=== PATIENT | female | born 1940 | race Two or more races ===

== ENCOUNTER 2019-04-22 22:56 | Inpatient (IN) | payer MEDICARE, BC ==
[~2019-04-22] VITALS: Ht 152.4 cm; Wt 70.6 kg
--- NOTE | 2019-04-22 23:20 | NUR ---
MS KUMAR ADMITTING NOTES: RECEIVED PATIENT FROM [facility]. REPORT WAS GIVEN BY THE RN FROM [facility]. PATIENT IS AWAKE IN BED. VERBALLY RESPONSIVE, ABLE TO MAKE NEEDS KNOWN. EQUATORIAL GUINEAN SPEAKING. A/OX2-3 WITH EPISODES OF CONFUSION. ORIENTED PATIENT TO ROOM AND STAFF. ON ROOM AIR. NO S/S OF SOB NOTED. NO SIGNS OF ACUTE DISTRESS. BREATHING EVEN AND UNLABORED. VITAL SIGNS STABLE AND WITHIN NORMAL LIMITS. PATIENT SRTATES SHE HAS PAIN ON RIGHT HIP DUE TO FALL INCIDENT ESPECIALLY WHEN BEARING WEIGHT ON THE AFFECTED SITE. PATIENT IS BED REST FOR NOW. IV ACCESS ON THE RIGHT FA #[id number], INTACT AND PATENT RUNNING IV NS 0.45% 75MLS/HR. SKIN ASSESSMENT WAS PERFORMED. REDNESS ON THE SACRUM, BACK, AND BILATERAL HEELS NOTED. PICTURES WERE TAKEN UPON ADMISSION. SAFETY MEASURES ARE INITIATED. BED IS IN LOW, LOCKED POSITION WITH SIDE RAILS UP X2. CALL LIGHT IS WITHIN EASY REACH OF THE PATIENT. WILL CONTINUE TO MONITOR PATIENT ACCORDINGLY. Addendum: 04/23/19 at 0236 by BRIONNA SCHWAB RN IV ACCESS IS ON THE LEFT FA #[id number].
[2019-04-22 23:25] VITALS: BP 133/65
--- NOTE | 2019-04-22 23:30 | NUR ---
MS RN NOTES: PATIENT WAS SEEN AND EVALUATED BY DR. PATEL. WAITING FOR ADMISSION ORDERS.
[2019-04-22] MEDS ORDERED: IV 1/2NS 1000 ML 1,000 ML IV PRN (23:40)
[2019-04-23] MEDS ORDERED: MAGNESIUM HYDROXIDE 30 ML UDC PO PRN
[2019-04-23] MEDS ORDERED: HYDROCODONE/APAP 5/325MG 1 EACH TABLET PO PRN
[2019-04-23] MEDS ORDERED: MAG HYDROX/AL HYDROX/SIMETH 30 ML UDC PO PRN
[2019-04-23] MEDS ORDERED: Z GUARD REMEDY 2 OZ OINT TP PRN
[2019-04-23] MEDS ORDERED: ONDANSETRON HCL/PF 4 MG/2 ML VIAL IVP PRN
[2019-04-23] MEDS ORDERED: ZOLPIDEM TARTRATE 5 MG TABLET PO PRN
[2019-04-23] MEDS: ZOLPIDEM TARTRATE 5 MG TABLET PO PRN (01:16)
--- NOTE | 2019-04-23 01:16 | NUR ---
MS RN NOTES: PATIENT REQUESTED FOR SLEEPING PILL TO HELP HER FALL ASLEEP. AMBIEN 5MG PO GIVEN ORDERED. TOLERATED WELL. SAFETY MEASURES KEPT IN PLACE. CALL LIGHT WITHIN REACH. WILL CONTINUE TO MONITOR.
[2019-04-23] MEDS ORDERED: Z GUARD REMEDY 4 OZ OINT TP ONE (05:43)
[2019-04-23 06:29] LABS: BASOPHILS % (AUTO) 0.5 % (0.0-2.0); EOSINOPHILS % (AUTO) 2.8 % (0.0-6.0); HEMATOCRIT 32 % (33-45); HEMOGLOBIN 10.2 g/dL (11.5-14.8); LYMPHOCYTES # (AUTO) 2.6 /CMM (0.8-4.8); LYMPHOCYTES % (AUTO) 35.6 % (20.0-44.0); MEAN CORPUSCULAR HGB CONC 32 g/dl (31.0-36.0); MEAN CORPUSCULAR VOLUME 82 fL (82-100); MONOCYTES # (AUTO) 0.8 /CMM (0.1-1.30); MONOCYTES % (AUTO) 10.3 % (2.0-12.0); NEUTROPHILS # (AUTO) 3.7 /CMM (1.8-8.9); NEUTROPHILS % (AUTO) 50.8 % (43.0-81.0); PLATELET COUNT (AUTO) 252 /CMM (150-450); RED BLOOD CELL COUNT(AUTO) 3.89 MIL/uL (4.0-5.2); WHITE BLOOD COUNT (AUTO) 7.3 K/uL (4.3-11.0)
--- NOTE | 2019-04-23 06:50 | NUR ---
MS RN CLOSING NOTES: PATIENT IS AWAKE IN BED COMPLAINING OF PAIN AT THE RIGHT SIDE OF THE HIP WITH A PAIN LEVEL OF 8-9. NORCO 5-325MG PO TAB WAS GIVEN AT 0629. TOLERATED WELL. PATIENT IS VERBALLY RESPONSIVE AND ABLE TO MAKE NEEDS KNOWN. PATIENT HAS EPISODES OF CONFUSION. ON ROOM AIR. NO S/S OF SOB NOTED. NO SIGNS OF ACUTE DISTRESS. BREATHING EVEN AND UNLABORED. VITAL SIGNS STABLE AND WITHIN NORMAL LIMITS. IV ACCESS ON THE LEFT FA #[id number]. INTACT AND PATENT. SAFETY MEASURES ARE INITIATED. ALL NURSING NEEDS MET AND PROVIDED. KEPT PT DRY AND CLEAN AT ALL TIMES. BED IS IN LOW, LOCKED POSITION WITH SIDE RAILS UP X2. CALL LIGHT IS WITHIN EASY REACH OF THE PATIENT. WILL ENDORSE TO DAY SHIFT FOR JIMBO.
--- NOTE | 2019-04-23 06:59 | NUR ---
MS STACY GUZMAN NOTES: RECEIVED PATIENT FROM [facility]. REPORT WAS GIVEN BY THE RN FROM [facility]. PATIENT IS AWAKE IN BED. VERBALLY RESPONSIVE, ABLE TO MAKE NEEDS KNOWN. BELIZEAN SPEAKING. A/OX2-3 WITH EPISODES OF CONFUSION. ORIENTED PATIENT TO ROOM AND STAFF. ON ROOM AIR. NO S/S OF SOB NOTED. NO SIGNS OF ACUTE DISTRESS. BREATHING EVEN AND UNLABORED. VITAL SIGNS STABLE AND WITHIN NORMAL LIMITS. PATIENT SRTATES SHE HAS PAIN ON RIGHT HIP DUE TO FALL INCIDENT ESPECIALLY WHEN BEARING WEIGHT ON THE AFFECTED SITE. PATIENT IS BED REST FOR NOW. IV ACCESS ON THE RIGHT FA #[id number], INTACT AND PATENT RUNNING IV NS 0.45% 75MLS/HR. SKIN ASSESSMENT WAS PERFORMED. REDNESS ON THE SACRUM, BACK, AND BILATERAL HEELS NOTED. PICTURES WERE TAKEN UPON ADMISSION. SAFETY MEASURES ARE INITIATED. BED IS IN LOW, LOCKED POSITION WITH SIDE RAILS UP X2. CALL LIGHT IS WITHIN EASY REACH OF THE PATIENT. WILL CONTINUE TO MONITOR PATIENT ACCORDINGLY. Addendum: 04/23/19 at 0236 by BRIONNA SCHWAB RN IV ACCESS IS ON THE LEFT FA #[id number]. Addendum: 04/23/19 at 0707 by BRIONNA SCHWAB RN RN CLOSING NOTES: PATIENT IS AWAKE IN BED COMPLAINING OF PAIN AT THE RIGHT SIDE OF THE HIP WITH A PAIN LEVEL OF 8-9. NORCO 5-325MG PO TAB WAS GIVEN AT 0629. TOLERATED WELL. PATIENT IS VERBALLY RESPONSIVE AND ABLE TO MAKE NEEDS KNOWN. PATIENT HAS EPISODES OF CONFUSION. ON ROOM AIR. NO S/S OF SOB NOTED. NO SIGNS OF ACUTE DISTRESS. BREATHING EVEN AND UNLABORED. VITAL SIGNS STABLE AND WITHIN NORMAL LIMITS. IV ACCESS ON THE LEFT FA #[id number]. INTACT AND PATENT. SAFETY MEASURES ARE INITIATED. ALL NURSING NEEDS MET AND PROVIDED. KEPT PT DRY AND CLEAN AT ALL TIMES. BED IS IN LOW, LOCKED POSITION WITH SIDE RAILS UP X2. CALL LIGHT IS WITHIN EASY REACH OF THE PATIENT. WILL ENDORSE TO DAY SHIFT FOR JIMBO.
[2019-04-23 07:00] LABS: THYROID STIMULATING HORMONE 0.763 uIU/mL (0.358-3.74)
[2019-04-23 07:27] LABS: CALCIUM, SERUM 8.8 mg/dL (8.5-10.1); CREATININE 0.7 mg/dL (0.6-1.3); MAGNESIUM 2.2 mg/dL (1.8-2.4); PHOSPHORUS 3.1 mg/dL (2.5-4.9); POTASSIUM 3.6 mmol/L (3.5-5.1)
--- NOTE | 2019-04-23 07:30 | NUR ---
RN MS NOTES PT IN BED, AWAKE, ALERT AND ORIENTED, FORGETFUL, NOT IN DISTRESS, STILL WITH COMPLAINT OF SLIGHT HIP PAIN, KEPT WARM AND COMFORTABLE IN BED.
[2019-04-23 08:00] VITALS: BP 156/67
[2019-04-23] MEDS: OXYBUTYNIN CHLORIDE 5 MG TABLET PO SCH (08:27)
[2019-04-23] MEDS: ACETAMINOPHEN 325 MG TABLET PO PRN (09:15)
[2019-04-23] MEDS: HYDROCODONE/APAP 10/325MG 1 EA TABLET PO PRN ×3 (10:09→23:24)
[2019-04-23] MEDS ORDERED: MELO-107 PO (10:39)
[2019-04-23] MEDS ORDERED: HYDR-3203 PO (10:39)
--- NOTE | 2019-04-23 11:29 | NUR ---
RN MS NOTES PT IN BED, RESTING, PAIN MEDS GIVEN FOR PAIN MANAGEMENT, ALERT WITH PERIODS OF BEING FORGETFUL, SEEN BY DR. GOODWIN, SEEN BY PHYSICAL THERAPIST, CD IMAGING FROM [facility] SENT TO RADIOLOGY FOR READING, CALLED AND LEFT MESSAGES TO PT'S CAREGIVER CHAIM AT [phone] FOR LIST OF CURRENT MEDS, KEPT PT CLEAN AND COMFORTABLE, IV FLUIDS INFUSING WELL.
[2019-04-23 15:51] VITALS: BP 155/66
--- NOTE | 2019-04-23 18:15 | NUR ---
RN MS NOTES PT IN BED, AWAKE, ALERT AND ORIENTED, WITH PERIODS OF BEING FORGETFUL, RESPIRATIONS NORMAL, PAIN MEDICATION GIVEN FOR PAIN MANAGEMENT, CALL LIGHT WITHIN REACH, ASSISTED TO BEDSIDE COMMODE FOR TOILETING NEEDS, LARGE BM X 1 THIS AFTERNOON, BED ALARM ON AT ALL TIMES, KEPT WARM AND COMFORTABLE IN BED.
--- NOTE | 2019-04-23 19:50 | NUR ---
MS RN OPENING NOTES: RECEIVED PATIENT AWAKE IN BED WITH HOB ELEVATED. A/O X2-3 WITH FORGETFULNESS. SPANISH SPEAKING. VERBALLY RESPONSIVE AND ABLE TO MAKE NEEDS KNOWN. ON ROOM AIR, NO SOB NOTED. NO S/S OF ACUTE DISTRESS. VITAL SIGNS STABLE. NO COMPLAINS OF PAIN OR DISCOMFORT AT THIS TIME. NO IV ACCES NOTED. ALL NEEDS ATTENDED AT THIS TIME. SAFETY MEASURE ARE IN PLACE. BED IS IN LOW, LOCKED POSITION WITH SIDE RAILS UP X2. CALL LIGHT IS WITHIN REACH, WILL CONTINUE TO MONITOR PATIENT ACCORDINGLY.
--- NOTE | 2019-04-23 19:55 | NUR ---
MS RN NOTES: PATIENT REFUSED IV LINE REINSERTION AT THIS TIME.
[2019-04-23 20:00] VITALS: BP 148/87
--- NOTE | 2019-04-23 23:24 | NUR ---
MS RN NOTES: PATIENT REPORTS A PAIN LEVEL OF 9 ON A SCALE OF 0-10. NORCO 10MG PO WAS GIVEN ORDERED FOR PAIN MANAGEMENT. TOLERATED WELL. PATIENT IS KEPT WARM AND COMFORTABLE IN BED. WILL CONTINUE TO MONITOR AND ASSESS AFTER 30 MINUTES.
--- NOTE | 2019-04-24 00:15 | NUR ---
RN NOTES DR. ALLEN AND INFORMED HER THAT PT. DOESN'T HAVE AN IV ACCESS RIGHT NOW AND REFUSING TO HAVE ONE
[2019-04-24] MEDS: HYDROCODONE/APAP 10/325MG 1 EA TABLET PO PRN ×2 (05:32→16:33)
--- NOTE | 2019-04-24 05:34 | NUR ---
MS RN NOTES: PATIENT WAS GIVEN NORCO 10 MG PO FOR RIGHT HIP PAIN. TOLERATED WELL. VITAL SIGNS STABLE. WILL CONTINUE TO MONITOR ANS ASSESS PATIENT LATER.
--- NOTE | 2019-04-24 05:34 | NUR ---
MS RN NOTES: PATIENT COMPLAINED OF A PAIN LEVEL OF 8 OUT SCALE OF 0-10.
--- NOTE | 2019-04-24 06:38 | NUR ---
MS RN CLOSING NOTES: PATIENT IS IN BED RESTING. A/O X 2-3 WITH MILD FORGETFULNESS AND EPISODES OF CONFUSION. VERBALLY RESPONSIVE AND ABLE TO MAKE NEEDS KNOWN. ON ROOM AIR, NO SOB NOTED. NO S/S OF ACUTE DISTRESS BREATHING EVEN AND UNLABORED. VITAL SIGNS STABLE AND WITHIN NORMAL LIMITS. NO IV ACCESS NOTED. PATIENT REFUSED TO HAVE IV LINE REINSERTED DURING CLINICAL LABORATORY MANAGER. ALL NURSING NEEDS MET AND PROVIDED. KEPT PATIENT WARM AND COMFORTABLE IN BED THROUGHOUT THE SHIFT. SAFETY MEASURES KEPT IN PLACE. BED IS IN LOW, LOCKED POSITION WITH SIDE RAILS UP X2. CALL LIGHT IS WITHIN EASY REACH OF THE PATIENT. WILL ENDORSE TO DAY SHIFT FOR JIMBO.
--- NOTE | 2019-04-24 07:20 | NUR ---
MS KUMAR OPENING NOTES RECEIVED PT IN BED. AWAKE A/O X3-4. PT ON SUPPLEMENTARY OXYGEN AT 2L VIA NC, WITH NO ACUTE RESPIRATORY DISTRESS NOTED. PT DENIES ANY PAIN OR DISCOMFORT AT THIS TIME. PT ALSO DENIES ANY CONCERNS OR QUESTIONS AT THIS MOMENT. NO PIV ACCESS, AWARE. PT KEPT COMFORTABLE. CALL LIGHT KEPT WITHIN REACH. PT'S BED IN LOWEST, LOCKED POSITION WITH SR X3. WILL CONTINUE PLAN OF CARE. Addendum: 04/24/19 at 0748 by DOREEN GANN RN PT NOT ON SUPPLEMENTARY OXYGEN. PT TOLERATING RA WITH NO ACUTE RESPIRATORY DISTRESS NOTED.
[2019-04-24 08:00] VITALS: BP 133/77
[2019-04-24] MEDS: OXYBUTYNIN CHLORIDE 5 MG TABLET PO SCH (08:42)
[2019-04-24] MEDS: ACETAMINOPHEN 325 MG TABLET PO PRN (08:42)
--- NOTE | 2019-04-24 09:29 | NUR ---
MS RN NOTES PT HAS NO IV ACCESS. RN OFFERED TO PUT IT ON. PT INSISTED TO REFUSE. EXPLAINED RISKS AND BENEFITS, STILL REFUSED. ALSO, AM LABS REFUSED BY PT AT THIS TIME, WILL TRY BY MASTER CONTROL TECHNICIAN AGAIN LATER. WILL CONTINUE TO MONITOR.
[2019-04-24 11:58] LABS: BASOPHILS % (AUTO) 0.3 % (0.0-2.0); EOSINOPHILS % (AUTO) 1.8 % (0.0-6.0); HEMATOCRIT 33 % (33-45); HEMOGLOBIN 10.5 g/dL (11.5-14.8); MEAN CORPUSCULAR HGB CONC 32 g/dl (31.0-36.0); MEAN CORPUSCULAR VOLUME 82 fL (82-100); MONOCYTES # (AUTO) 0.7 /CMM (0.1-1.30); MONOCYTES % (AUTO) 10.6 % (2.0-12.0); NEUTROPHILS # (AUTO) 4.1 /CMM (1.8-8.9); NEUTROPHILS % (AUTO) 58.3 % (43.0-81.0); PLATELET COUNT (AUTO) 278 /CMM (150-450); RED BLOOD CELL COUNT(AUTO) 4.02 MIL/uL (4.0-5.2)
[2019-04-24 12:20] LABS: CALCIUM, SERUM 9.2 mg/dL (8.5-10.1); CREATININE 0.8 mg/dL (0.6-1.3); MAGNESIUM 2.1 mg/dL (1.8-2.4); PHOSPHORUS 3.3 mg/dL (2.5-4.9); POTASSIUM 3.9 mmol/L (3.5-5.1)
[2019-04-24 16:01] VITALS: BP 155/74
[2019-04-24] MEDS: CELECOXIB 100 MG CAPSULE PO SCH ×2 (17:41→21:12)
[2019-04-24] MEDS: METHOCARBAMOL (500MG) 500 MG TABLET PO SCH (17:41)
--- NOTE | 2019-04-24 19:13 | NUR ---
MS RN CLOSING NOTES PT IN BED. AWAKE A/O X3-4. PT TOLERATING RA, WITH NO ACUTE RESPIRATORY DISTRESS NOTED. PT DENIES ANY PAIN OR DISCOMFORT AT THIS TIME. PT ALSO DENIES ANY CONCERNS OR QUESTIONS AT THIS MOMENT. NO PIV ACCESS, MD AWARE. PT KEPT COMFORTABLE. ALL NEEDS AND CARE ATTENDED. CALL LIGHT KEPT WITHIN REACH. PT'S BED IN LOWEST, LOCKED POSITION WITH SR X3. WILL ENDORSE TO INCOMING NIGHT NURSE FOR JIMBO.
--- NOTE | 2019-04-24 19:42 | NUR ---
RECEIVE PT IN BED WATCHING TV A/O X 2 WITH EPISODE OF CONFUSION, STABLE AND NOT IN DISTRESS, SAFETY MEASURES IN PLACE. WILL CONT TO MTR. Addendum: 04/24/19 at 2241 by SHONNA HERBERT RN Pt refused PIV at this time despite explaining risks and benefits MD wood
[2019-04-24 20:00] VITALS: BP 116/63
[2019-04-24] MEDS: ZOLPIDEM TARTRATE 5 MG TABLET PO PRN (21:12)
--- NOTE | 2019-04-24 22:38 | NUR ---
Monitored for pain. no c/o of r hip pain at this time. will cont to mtr
[2019-04-25] MEDS: HYDROCODONE/APAP 5/325MG 1 EACH TABLET PO PRN ×3 (03:50→19:18)
[2019-04-25] MEDS: METHOCARBAMOL (500MG) 500 MG TABLET PO SCH ×2 (04:32→17:38)
--- NOTE | 2019-04-25 06:06 | NUR ---
ASLEEP AND EASILY AWAKEN, NO C/O PAIN AT THIS TIME. STABLE, NEEDS ATTENDED AND ANTICIPATED, KEPT CLEAN, DRY AND COMFORTABLE. MONITORED FOR PAIN AND ATTENDED. AM CARE RENDERED, ASSISTED REPOSITION EVERY 2 HOURS. GOOD SKIN CARE, SAFETY MEASURE AT ALL TIME. WILL ENDORSE POC. Addendum: 04/25/19 at 0619 by SHONNA HERBERT RN ENCOURAGE PT TO INCREASE FLUID PO INTAKE. PT REFUSED PIV ACCESS DESPITE EXPLAINING RISKS AND BENEFITS
[2019-04-25] MEDS: HYDROCODONE/APAP 10/325MG 1 EA TABLET PO PRN ×2 (07:26→15:53)
--- NOTE | 2019-04-25 07:31 | NUR ---
patient reported left hip pain 10/10. PRN pain medication administrated
[2019-04-25 08:00] VITALS: BP 150/70
[2019-04-25] MEDS: CELECOXIB 100 MG CAPSULE PO SCH (08:35)
[2019-04-25] MEDS: OXYBUTYNIN CHLORIDE 5 MG TABLET PO SCH (08:35)
[2019-04-25] MEDS ORDERED: HYDR-3972 PO (11:38)
[2019-04-25] MEDS ORDERED: ACET325T53 PO (11:38)
[2019-04-25] MEDS ORDERED: Hydrocodone/Apap 10/325MG PO (11:38)
[2019-04-25] MEDS ORDERED: MAGN400O6 PO (11:38)
[2019-04-25] MEDS ORDERED: OXYB5TAB16 PO (11:38)
[2019-04-25] MEDS ORDERED: CELE100C PO (11:38)
[2019-04-25] MEDS ORDERED: MAG30ORA PO (11:38)
[2019-04-25] MEDS ORDERED: ALLA266C2 TP (11:38)
[2019-04-25] MEDS ORDERED: METH500T6 PO (11:38)
--- NOTE | 2019-04-25 14:47 | NUR ---
report called to Mara KUMAR ([facility] )
[2019-04-25 16:00] VITALS: BP 150/66
--- NOTE | 2019-04-25 18:32 | NUR ---
PATIENT RESTING IN BED, AND HAS NO PAIN AT THIS TIME. PATIENT CLEARED FOR D/C BY MD AND WILL BE TRANSFERRED TO SNF. PHOTOGRAPHER FINISH TIME NOT AVAILABLE. ALL DISCHARGE INSTRUCTIONS PROVIDED TO PATIENT. D/C PICTURES TAKEN AND PLACED IN THE CHART. PATIENTS HOME MEDS PICKED UP FROM PHARMACY. VALUABLE FORM REVIEWED WITH THE PATIENT AND ALL BELONGINGS WITH THE PATIENT. ALL NEEDS ATTENDED.PATIENT HAS NO IV ASSESS. PAIN MEDICATION ADMINISTRATED NEEDED. WILL ENDORSE TO NEXT SHIFT FOR JIMBO.
--- NOTE | 2019-04-25 19:19 | NUR ---
patient picked up by ambulance. Pain medication administrated . ID wrist removed, no IV line ,. Patient sighed d/c papers including valuable form
== END 2019-04-25 19:30 | DRG 552 ==
LOC: MED 22:56
PROVIDERS: ADMIT Student in an Organized Health Care Education/Training Program; ATTEND Registered Nurse
DX: M62.830 Muscle spasm of back (principal); M25.551 Pain in right hip; D64.9 Anemia, unspecified; E86.0 Dehydration; W19.XXXA Unspecified fall, initial encounter; E03.9 Hypothyroidism, unspecified; F32.9 Major depressive disorder, single episode, unspecified; G89.29 Other chronic pain; Z86.12 Personal history of poliomyelitis; Z87.891 Personal history of nicotine dependence; F41.9 Anxiety disorder, unspecified; R32 Unspecified urinary incontinence; Y93.9 Activity, unspecified; Y92.009 Unspecified place in unspecified non-institutional (private) residence as the place of occurrence of the external cause
CPT/HCPCS: 36415; 80048-TC; 80061-TC; 83735-TC; 84100-TC; 84443-TC; 85025-TC; 87081-TC; 93307-TC; 97112-TC; 97116-TC; 97530-TC; G0378; J3490

== ENCOUNTER 2019-10-17 02:50 | Inpatient (IN) | payer MEDICARE, BC ==
[~2019-10-17] VITALS: Ht 152.4 cm; Wt 59.4 kg
[~2019-10-17 02:50] MED LIST: ACET325T53 PO; ALLA266C2 TP; CELE100C PO; HYDR-3972 PO; Hydrocodone/Apap 10/325MG PO; MAG30ORA PO; MAGN400O6 PO; METH500T6 PO; OXYB5TAB16 PO
--- NOTE | 2019-10-17 03:01 | NUR ---
BLOOD COLLECTED AND SENT TO LAB.
--- NOTE | 2019-10-17 03:01 | NUR ---
PATIENT CAME FROM [facility] RA C/O OXYGEN SATURATION AT 86% ON ROOM AIR. PATIENT PLACED ON 6L OF N/C AND IS ON 94% O2. AAOX4. BREATHING EVENLY AND UNLABORED ON ROOM AIR. CONNECTED TO MONITOR.
--- NOTE | 2019-10-17 03:09 | NUR ---
XRAY AT BEDSIDE.
--- NOTE | 2019-10-17 03:18 | NUR ---
COVID-19 SAMEPL AND URINE COLLECTED AND SENT TO LAB.
[2019-10-17 03:30] LABS: BASOPHILS # (AUTO) 0.1 /CMM (0.0-0.2); BASOPHILS % (AUTO) 0.7 % (0.0-2.0); EOSINOPHILS % (AUTO) 0.4 % (0.0-6.0); HEMATOCRIT 41 % (33-45); HEMOGLOBIN 13.5 g/dL (11.5-14.8); LYMPHOCYTES # (AUTO) 1.1 /CMM (0.8-4.8); LYMPHOCYTES % (AUTO) 8.9 % (20.0-44.0); MEAN CORPUSCULAR HGB CONC 33 g/dl (31.0-36.0); MEAN CORPUSCULAR VOLUME 94 fL (82-100); MONOCYTES # (AUTO) 0.6 /CMM (0.1-1.30); MONOCYTES % (AUTO) 4.9 % (2.0-12.0); NEUTROPHILS # (AUTO) 10.9 /CMM (1.8-8.9); NEUTROPHILS % (AUTO) 85.1 % (43.0-81.0); PLATELET COUNT (AUTO) 313 /CMM (150-450); RED BLOOD CELL COUNT(AUTO) 4.37 MIL/uL (4.0-5.2); WHITE BLOOD COUNT (AUTO) 12.7 K/uL (4.3-11.0)
[2019-10-17 03:35] LABS: APPEARANCE,URINE Slightly Cloudy (CLEAR); BILIRUBIN,URINE Negative (NEGATIVE); BLOOD, URINE Moderate Ery/uL (NEGATIVE); COLOR,URINE Yellow (YELLOW); KETONES,URINE 15 (NEGATIVE); LEUKOCYTE ESTERASE ,URINE Small (NEGATIVE); NITRITE, URINE Negative (NEGATIVE); PROTEIN,URINE Negative (NEGATIVE); UGLUCOSE Negative (NEGATIVE); UROBILINOGEN,URINE 0.2 EU/dL (0.2)
[2019-10-17 03:44] LABS: BACTERIA,URINE Many /HPF (None Seen); SQUAMOUS EPITHELIAL CELL,UR Few /HPF (None Seen)
[2019-10-17 03:45] LABS: CALCIUM, SERUM 9.4 mg/dL (8.5-10.1); CARBON DIOXIDE 26 mmol/L (21-32); CHLORIDE 102 mmol/L (98-107); GLUCOSE 139 mg/dL (74-106); SODIUM SERUM 140 mmol/L (136-145); UREA NITROGEN, BLOOD 19 mg/dL (7-18)
[2019-10-17 03:49] LABS: ALANINE AMINOTRANSFERASE 18 U/L (12-78); ALBUMIN 3.3 g/dL (3.4-5.0); ALKALINE PHOSPHATASE 159 U/L (46-116); ASPARTATE AMINOTRANSFERASE 23 U/L (15-37); B-TYPE NATRIURETIC PEPTIDE 338 PG/ML (0-125); BILIRUBIN,TOTAL 0.7 mg/dL (0.2-1.0); TOTAL PROTEIN, SERUM 8.4 g/dL (6.4-8.2)
[2019-10-17] MEDS ORDERED: ONDANSETRON HCL/PF 4 MG/2 ML VIAL IVP PRN (04:30)
[2019-10-17] MEDS ORDERED: ALBUTEROL SULFATE 8 GM HFA.AER.AD IH PRN (04:30)
[2019-10-17 04:33] LABS: CREATINE KINASE, TOTAL 137 U/L (26-192); FERRITIN 48 ng/mL (8-388)
[2019-10-17 04:40] LABS: C-REACTIVE PROTEIN 4.5 mg/dL (0.0-0.9)
--- NOTE | 2019-10-17 04:44 | NUR ---
PATIENT WILL GO TO BED 103
--- NOTE | 2019-10-17 04:44 | NUR ---
BED ASSIGNMENT 103
--- NOTE | 2019-10-17 05:01 | NUR ---
REPORT GIVEN TO HERNAN KUMAR FOR JIMBO.
[2019-10-17] MEDS ORDERED: HYDR-4384 PO (05:08)
[2019-10-17] MEDS ORDERED: MAGN400O6 GT (05:08)
[2019-10-17] MEDS ORDERED: NITR0.4T48 SL (05:09)
[2019-10-17] MEDS ORDERED: METH-406 PO (05:10)
[2019-10-17] MEDS ORDERED: CELE100C PO (05:10)
--- NOTE | 2019-10-17 05:10 | NUR ---
RN NOTES: REPORT GIVEN BY ZEN/ER/RN, PATIENT WAS BROUGHT IN ER VIA AMBULANCE, SHE HAD PRODUCTIVE COUGH 3-4 DAYS AGO WITH GREENISH SPUTUM, SHE IS COMPLAINING OF CHEST PAIN, SHE WAS ON THE SAME FLOOR IN THEIR FACILITY WITH A COVID 19 POSITIVE PATIENT, SHE CAME IN WITH DESATURATION SPO2-86%, SHE WAS PLACED IN FM AT 10L/MIN AFTER THAT SLOWLY SHE IMPROVE AND REACH 91%, SHE HAS HISTORY OF FALL AND VERY HIGH RISK FOR FALL, COVID SWAB AND MRSA SWAB DONE INER, MED RECON NOT YET DONE, NO MEDICATION GIVEN IN ER.
[2019-10-17] MEDS ORDERED: OXYB5TAB16 PO (05:11)
[2019-10-17] MEDS ORDERED: SERT25TA PO (05:13)
[2019-10-17 05:25] VITALS: BP 142/82
--- NOTE | 2019-10-17 05:25 | NUR ---
RN NOTES: ADMITTED FROM ER AT O525 ACCOMPANIED BY 2 RN, SHE IS ON HACK SAW OPERATOR FROM ER,TELE MONITORING INITIATED SINUS TACHYCARDIA-109, PLACED ON DROPLET ISOLATION DX:PNEUMONIA/SEPSIS TO R/O COVID, A/OX1, LOOKS CONFUSED AND ANXIOUS, UNABLE TO ANSWER AND GIVE INFORMATION WELL SHE LOOKS SICK, PALE AND TIRED, ORIENTED TO UNIT AND STAFF, FALL,SAFETY AND ASPIRATION PRECAUTION OBSERVED.ON O2 AT 6L/MIN VIA FACIAL MASK, UPON INTERVIEW SHE CANNOT RECALL HER PNA AND FLU VACCINE, UPON SKIN ASSESSMENT NO SKIN ISSUES WAS FOUND HER SKIN IS CLEAR AND INTACT, NO EDEMA, SHE VERBALIZED SHE IS AMBULATING WHEN SHE IS NOT SICK,FALL,SAFETY AND ASPIRATION PRECAUTION, NOTED WITH ON AND OFF PRODUCTIVE COUGH, SHE COUGH OUT WHITE STICKY PHLEGM, SHE VOMITED ONCE UNDIGESTED FOOD, SHE IS TRYING TO REMOVE HER FACIAL MASK,EDUCATE AND INSTRUCTED NOT TO REMOVE IT, NOTED WITH WHEEZING AND RALES. SPO2 AT 90-91%.
[2019-10-17 05:35] LABS: BAND % (MANUAL) 3 % (0.0-5.0); LYMPHOCYTES % (MANUAL) 7 % (16-48); MONOCYTES % (MANUAL) 5 % (0-11.0); NEUTROPHILS % (MANUAL) 85 (42-76)
[2019-10-17] MEDS: IV NS 0.9% 1,000 ML IV PRN (05:52)
[2019-10-17] MEDS: DOXYCYCLINE HYCLATE (100 MG) 100 MG TABLET PO SCH ×3 (05:52→16:29)
[2019-10-17] MEDS: ACETAMINOPHEN 325 MG TABLET PO PRN (05:52)
--- NOTE | 2019-10-17 06:24 | NUR ---
RN NOTES: VOMITED ONCE UNDIGESTED FOOD WITH PHLEGM, SHE HAS ON AND OFF COUGH, WHEEZING AND RALES NOTED.
--- NOTE | 2019-10-17 07:27 | NUR ---
RN NOTES: KEPT ON SEMI FOWLERS POSITION, SPO2 90% ON O2 AT 6L/MIN VIA FACIAL MASK,IVF ONGOING NS AT 75ML/HR , IV CANNULA LFA G#20,, PUT ON DIAPER, AND SHE REQUEST TO HAVE BED KHAN, ENDORSED FOR CONTINUITY OF CARE.
[2019-10-17 08:00] VITALS: BP 145/65
[2019-10-17] MEDS ORDERED: SENN-261 PO (08:39)
[2019-10-17] MEDS ORDERED: BISA10SU11 RC (08:39)
[2019-10-17] MEDS ORDERED: ACET-2605 PO (08:39)
[2019-10-17] MEDS ORDERED: NA P133E RC (08:39)
[2019-10-17] MEDS ORDERED: METH500T6 PO (08:39)
[2019-10-17] MEDS ORDERED: GABA-534 PO (08:39)
[2019-10-17] MEDS ORDERED: ACET-868 PO (08:39)
[2019-10-17] MEDS ORDERED: FERR325T24 PO (08:39)
[2019-10-17] MEDS ORDERED: DULO20CA PO (08:39)
[2019-10-17] MEDS ORDERED: MAG30ORA PO (08:39)
[2019-10-17] MEDS ORDERED: LIDO30AD10 TP (08:39)
[2019-10-17] MEDS ORDERED: LEVOFLOXACIN 500 MG /D5W 100ML 500 MG/100 ML PIGGYBACK IV SCH (09:00)
[2019-10-17] MEDS: LEVOFLOXACIN 500 MG /D5W 100ML 500 MG in PREMIX 1 EA IV SCH (10:07)
[2019-10-17] MEDS ORDERED: BISACODYL SUPP (10 MG) 10 MG/SUPP.RECT SUPP.RECT RC PRN (11:00)
[2019-10-17] MEDS ORDERED: Z GUARD REMEDY 2 OZ OINT TP PRN (11:00)
[2019-10-17] MEDS ORDERED: NITROGLYCERIN 0.4 MG/TAB BOTTLE SL PRN (11:00)
[2019-10-17 11:02] LABS: ABG PCO2 35.8 mmHg (35.0-45.0); ABG PH 7.409 (7.350-7.450); ABG PO2 74.9 mmHg (75.0-100.0); AaDO2 241.3 mmHg; COHb 0.7 % (0.5-1.5); MetHb 0.3 % (0.0-1.5); SITE, ABG Right Radial; VENT MODE, BG SM 6L
[2019-10-17] MEDS: SERTRALINE HCL 25 MG TABLET PO SCH (11:35)
[2019-10-17] MEDS: METHOCARBAMOL (500MG) 500 MG TABLET PO SCH ×2 (11:35→21:21)
[2019-10-17] MEDS: ENOXAPARIN SODIUM 40 MG/0.4 ML DISP.SYRIN SQ SCH (11:38)
[2019-10-17] MEDS: LIDOCAINE 5% (PATCH) 1 EA PATCH TP SCH (11:40)
[2019-10-17] MEDS: OXYBUTYNIN CHLORIDE 5 MG TABLET PO SCH (11:40)
[2019-10-17 12:00] VITALS: BP 133/76
[2019-10-17 20:00] VITALS: BP 152/72
[2019-10-17] MEDS: SENNOSIDES 8.6 MG TABLET PO SCH (21:21)
[2019-10-18] VITALS: BP 144/78
[2019-10-18 04:00] VITALS: BP 128/63
--- NOTE | 2019-10-18 06:39 | NUR ---
rn notes alert, verbally able to communicate needs. confused. vomitted x2, administered zofran 4mg iv, effective. vital signs wnl. remains afebrile. on 6lpm 02 via mask tolerating well, breathing even and unlabored.
[2019-10-18 07:18] LABS: BASOPHILS % (AUTO) 0.4 % (0.0-2.0); EOSINOPHILS % (AUTO) 1.4 % (0.0-6.0); HEMATOCRIT 38 % (33-45); HEMOGLOBIN 12.5 g/dL (11.5-14.8); LYMPHOCYTES # (AUTO) 1.7 /CMM (0.8-4.8); LYMPHOCYTES % (AUTO) 15.4 % (20.0-44.0); MEAN CORPUSCULAR HGB CONC 33 g/dl (31.0-36.0); MEAN CORPUSCULAR VOLUME 95 fL (82-100); MONOCYTES # (AUTO) 0.8 /CMM (0.1-1.30); MONOCYTES % (AUTO) 7.2 % (2.0-12.0); NEUTROPHILS # (AUTO) 8.5 /CMM (1.8-8.9); NEUTROPHILS % (AUTO) 75.6 % (43.0-81.0); PLATELET COUNT (AUTO) 268 /CMM (150-450); RED BLOOD CELL COUNT(AUTO) 4.03 MIL/uL (4.0-5.2); WHITE BLOOD COUNT (AUTO) 11.2 K/uL (4.3-11.0)
[2019-10-18 07:35] LABS: BILIRUBIN,TOTAL 0.8 mg/dL (0.2-1.0); CALCIUM, SERUM 9.2 mg/dL (8.5-10.1); CREATININE 0.7 mg/dL (0.6-1.3); POTASSIUM 3.7 mmol/L (3.5-5.1); TOTAL PROTEIN, SERUM 7.8 g/dL (6.4-8.2)
[2019-10-18 08:00] VITALS: BP 116/51
[2019-10-18] MEDS: LIDOCAINE 5% (PATCH) 1 EA PATCH TP SCH (08:51)
[2019-10-18] MEDS: OXYBUTYNIN CHLORIDE 5 MG TABLET PO SCH (08:51)
[2019-10-18] MEDS: SERTRALINE HCL 25 MG TABLET PO SCH (08:51)
[2019-10-18] MEDS: METHOCARBAMOL (500MG) 500 MG TABLET PO SCH ×2 (08:51→21:18)
[2019-10-18] MEDS: DOXYCYCLINE HYCLATE (100 MG) 100 MG TABLET PO SCH ×2 (08:51→16:02)
[2019-10-18] MEDS: ENOXAPARIN SODIUM 40 MG/0.4 ML DISP.SYRIN SQ SCH (08:53)
[2019-10-18] MEDS ORDERED: POTASSIUM CHLORIDE 20 MEQ TAB.PRT.SR PO SCH (11:00)
[2019-10-18 12:00] VITALS: BP 124/70
[2019-10-18 16:00] VITALS: BP 130/68
[2019-10-18 20:00] VITALS: BP 129/77
[2019-10-18] MEDS: IV NS 0.9% 1,000 ML IV PRN (20:42)
[2019-10-18] MEDS: SENNOSIDES 8.6 MG TABLET PO SCH (21:18)
[2019-10-19] VITALS: BP 142/72
[2019-10-19 04:00] VITALS: BP 126/59
[2019-10-19 06:25] LABS: BASOPHILS # (AUTO) 0.1 /CMM (0.0-0.2); BASOPHILS % (AUTO) 0.6 % (0.0-2.0); EOSINOPHILS % (AUTO) 2.9 % (0.0-6.0); HEMATOCRIT 37 % (33-45); HEMOGLOBIN 12.2 g/dL (11.5-14.8); LYMPHOCYTES # (AUTO) 1.7 /CMM (0.8-4.8); LYMPHOCYTES % (AUTO) 17.5 % (20.0-44.0); MEAN CORPUSCULAR HGB CONC 33 g/dl (31.0-36.0); MEAN CORPUSCULAR VOLUME 94 fL (82-100); MONOCYTES # (AUTO) 0.9 /CMM (0.1-1.30); MONOCYTES % (AUTO) 9.5 % (2.0-12.0); NEUTROPHILS # (AUTO) 6.7 /CMM (1.8-8.9); NEUTROPHILS % (AUTO) 69.5 % (43.0-81.0); PLATELET COUNT (AUTO) 230 /CMM (150-450); RED BLOOD CELL COUNT(AUTO) 3.91 MIL/uL (4.0-5.2); WHITE BLOOD COUNT (AUTO) 9.7 K/uL (4.3-11.0)
[2019-10-19 06:27] LABS: CALCIUM, SERUM 8.9 mg/dL (8.5-10.1); CREATININE 0.7 mg/dL (0.6-1.3); PHOSPHORUS 2.7 mg/dL (2.5-4.9); POTASSIUM 3.7 mmol/L (3.5-5.1)
[2019-10-19 08:00] VITALS: BP 124/50
--- NOTE | 2019-10-19 08:00 | NUR ---
TANK WELDER OPENING NOTES: RECEIVED PT ALERT BUT CONFUSED IN BED RESTING COMFORTABLY. PATIENT IN NO S/SX OF ACUTE DISTRESS AT THIS TIME. NO SOB NOTED. PATIENT'S BREATHING IS EVEN AND UNLABORED. PATIENT IS ON 2L OF OXYGEN VIA NC, TOLERATING WELL. PATIENT ON CARDIAC MONITORING READING SINUS RHYTHM HR IS @61. NOTED IV SITE ON LEFT FA 20 G ; PATENT IN INTACT. SAFETY MEASURES HAVE BEEN PROVIDED AND IMPLEMENTED. PATIENT BED ALARM IS ON. HEAD OF BED ELEVATED. BED IS LOCKED, IN LOWEST POSITION AND SIDE RAILS UP. CALL LIGHT WITHIN REACH OF THE PATIENT. WILL CONTINUE TO MONITOR AND REASSESS FOR ANY CHANGES.
[2019-10-19] MEDS: LIDOCAINE 5% (PATCH) 1 EA PATCH TP SCH (08:42)
[2019-10-19] MEDS: SERTRALINE HCL 25 MG TABLET PO SCH (08:42)
[2019-10-19] MEDS: OXYBUTYNIN CHLORIDE 5 MG TABLET PO SCH (08:42)
[2019-10-19] MEDS: METHOCARBAMOL (500MG) 500 MG TABLET PO SCH ×2 (08:43→21:26)
[2019-10-19] MEDS: ENOXAPARIN SODIUM 40 MG/0.4 ML DISP.SYRIN SQ SCH (08:44)
[2019-10-19] MEDS: LEVOFLOXACIN 500 MG /D5W 100ML 500 MG in PREMIX 1 EA IV SCH (08:46)
[2019-10-19 12:00] VITALS: BP_SYST 123; BP_SYST 93; BP_DIAS 59; BP_DIAS 60
[2019-10-19 16:00] VITALS: BP 132/59
--- NOTE | 2019-10-19 17:56 | NUR ---
TELE/RN NOTES PATIENT FOUND BY THE AIR TESTER IS ON THE FLOOR. NO BRUISE NO SKIN REDNESS NOTED PATIENT DENIES PAIN AT THIS TIME. MD IS AWARE AND CHARGE NURSE. WILL MONITOR CONTINUOUSLY.
--- NOTE | 2019-10-19 18:00 | NUR ---
RIB SAWYER NOTES PATIENT PULLED OUT IV LINE. IV ACCESS WAS INITIATED BUT PATIENT KEPT ON PULL OUT THE IV ACCESS. TRIED TO EXPLAIN THE RISK AND BENEFITS. CHARGE NURSE IS AWARE.
--- NOTE | 2019-10-19 18:45 | NUR ---
PATIENT IN BED RESTING COMFORTABLY. PATIENT IN NO ACUTE DISTRESS. NO SOB NOTED, PT BREATHING IS EVEN AND UNLABORED. PT BREATHING ON OXYGEN 2L VIA NC SATURATING > 95% SP02. PATIENT ON CARDIAC MONITORING READING SINUS RHYTHM HR IS @61. PATIENT STATES NO PAIN AT THIS TIME. PATIENT IS CLEAN , DRY AND COMFORTABLE THROUGHOUT THE SHIFT. NEEDS AND CONCERNS ADDRESSED. SAFETY MEASURES IN PLACED. PATIENT BED IS LOCKED AND IN LOWEST POSITION. SIDE RAILS UP. CALL LIGHT WITHIN REACH OF THE PATIENT. WILL ENDORSE TO PM SHIFT FOR JIMBO.
--- NOTE | 2019-10-19 19:29 | NUR ---
RN OPENING NOTES RECEIVED PATIENT FROM AM NURSE, IN BED, CONFUSED, CURRENTLY ON ROOM AIR SATURATING WELL, NO SIGNS AND SYMPTOMS OF RESPIRATORY DISTRESS. PATIENT IS SINUS TACHY ON THE MONITOR, MD IS AWARE. PATIENT HAS PULLED OUT HER IV EARLIER TODAY, WRAPPED NEW IV SITE TO PREVENT AGITATION. WILL CONTINUE TO MONITOR CLOSELY. SAFETY MAINTAINED, CALL LIGHT WITHIN REACH.
[2019-10-19 20:00] VITALS: BP 122/95
--- NOTE | 2019-10-19 20:00 | NUR ---
RN NOTE PATIENT IS ATTEMPTING TO GET OUT OF BED. HAD A FALL EARLIER TODAY, PULLED OUT HER IV. PATIENT IS CONFUSED, SPOKE TO DR AVINA. MD ORDERED BILATERAL WRIST RESTRAINTS. PLACED PATIENT ON RESTRAINTS PER MD ORDER. SAFETY IS MAINTAINED, CONTINUOUSLY ASSESSING THE WRIST RESTRAINTS AND ATTENDING ALL PATIENT NEEDS. PATIENT IV IS DISLODGED, UNABLE TO START A NEW IV AT THE MOMENT, PATIENT IS A HARD STICK. NOTIFIED CHARGE NURSE, WILL ATTEMPT TO START AN IV SOON POSSIBLE. PATIENT SAFETY IS BEING MAINTAINED, CALL LIGHT WITHIN REACH, WILL CONTINUE TO MONITOR.
[2019-10-19] MEDS: SENNOSIDES 8.6 MG TABLET PO SCH (21:26)
--- NOTE | 2019-10-19 23:50 | NUR ---
RN NOTE NO NURSE ON THE FLOOR IS ABLE TO START AN IV ON THIS PATIENT. NOTIFIED JASON HOYT TO KEEP PATIENT WITHOUT AN IV ACCESS THROUGHOUT THE NIGHT. SAFETY MAINTAINED, CALL LIGHT WITHIN REACH, WILL CONTINUE TO MONITOR.
[2019-10-20] VITALS: BP 129/72
--- NOTE | 2019-10-20 02:41 | NUR ---
RN NOTE MIDLINE ORDERED BECAUSE NO PERIPHERAL IV AVAILABLE. APPROVED BY NURSING WEB SITE DEVELOPER ALEN Jarvis AND ORDERED BY KAILYN TEJEDA. MIDLINE IS BEING INSERTED AT THE MOMENT. SAFETY MAINTAINED, CALL LIGHT WITHIN REACH, WILL CONTINUE TO MONITOR.
[2019-10-20] MEDS: IV NS 0.9% 1,000 ML IV PRN ×2 (03:06→23:00)
[2019-10-20 04:00] VITALS: BP 117/98
--- NOTE | 2019-10-20 06:24 | NUR ---
RN CLOSING NOTES PATIENT REMAINED IN STABLE CONDITION THROUGHOUT MY SHIFT. NO ACUTE CHANGES TO PATIENT CONDITION HAS BEEN NOTED. NO RESPIRATORY DISTRESS AT THIS MOMENT. ALL PATIENT NEEDS ATTENDED TO, SCHEDULED MEDS GIVEN ON TIME. PATIENT SAFETY WAS MAINTAINED, CALL LIGHT WITHIN REACH, WILL ENDORSE TO AM NURSE FOR CONTINUITY OF CARE.
[2019-10-20 08:00] VITALS: BP 124/72
--- NOTE | 2019-10-20 08:00 | NUR ---
RN NOTES RECEIVED PATIENT IN HE BED A/O X2/3 FORGETFUL, ON ROOM AIR, NO ACUTE RESPIRATORY DISTRESS, V/S STABLE, INFUSING NS AT 75 ML/HR ON LEFT HAND INTACT, PATIENT REFUSED PAIN, ADMINISTERED SCHEDULED MEDICATION CRUSHED. PATIENT GETTING OUT OF BED, EDUCATED PATIENT TO USE CALL LIGHT FOR FALL PRECAUTION, PATIENT TURN AND REPOSTION SELF IN THE BED, SAFETY PRECAUTION MAINTAINED ALL THE TIME.
--- NOTE | 2019-10-20 08:00 | NUR ---
RN NOTES RECEIVED PATIENT IN THE BED SLEEPING, AROUSE WHEN CALLED NAME OR TOUCHED, V/S STABLE,INFUSING NS AT 75 ML/HR INTACT RIGHT UPPER MIDLINE INTACT. PATIENT TURN AND REPOSTION IN THE BED, ON RESTRAIN, CHECKED CIRCULATION, CALL LIGHT WITHIN TO REACH. CONTINUED MONITORING.
--- NOTE | 2019-10-20 09:00 | NUR ---
RN NOTES ADMINISTERED SCHEDULED MEDICATION, PATIENT FRISIAN SPEAKER, WAS COMPLAINING OF PAIN LOWER BACK, APPLIED LIDOCAINE PATCH, BED ALARM ON.
[2019-10-20] MEDS: LIDOCAINE 5% (PATCH) 1 EA PATCH TP SCH (10:03)
[2019-10-20] MEDS: METHOCARBAMOL (500MG) 500 MG TABLET PO SCH ×2 (10:04→20:28)
[2019-10-20] MEDS: SERTRALINE HCL 25 MG TABLET PO SCH (10:04)
[2019-10-20] MEDS: OXYBUTYNIN CHLORIDE 5 MG TABLET PO SCH (10:04)
[2019-10-20] MEDS: ENOXAPARIN SODIUM 40 MG/0.4 ML DISP.SYRIN SQ SCH (10:07)
--- NOTE | 2019-10-20 10:41 | NUR ---
RN NOTES PATIENT REMOVED IV ACCESS, PATIENT STATE "I AM THINKING I AM ". ADMINISTERED SCHEDULED MEDICATION., PATIENT INCONTINENT OF BLADDER, AND BOWEL, APPLIED DIAPER, SKIN INTACT CALL LIGHT WITHIN TO REACH, CONTINUED MONITORING.
[2019-10-20 12:00] VITALS: BP 130/76
--- NOTE | 2019-10-20 13:01 | NUR ---
RN NOTES BECAUSE OF PATIENT REMOVED IV ACCESS, TRIED AND UNABLE TO INSERT NEW ONE, PATIENT WAS YELLING. CALLED OCCUPATIONAL MEDICINE PHYSICIAN FOR NEW MIDLINE INSERTION.
--- NOTE | 2019-10-20 14:46 | NUR ---
RN NOTES PATIENT POSITIVE FOR COVID -19 TEST RESULT.
[2019-10-20 16:00] VITALS: BP 140/69
--- NOTE | 2019-10-20 18:06 | NUR ---
RN NOTES PATIENT STABLE EATING DINNER, NO ACUTE RESPIRATORY DISTRESS. INFUSING NS AT 75 ML/HR ON RIGHT MIDDLING IN UPPER ARM INTACT, ASSIST TURN AND REPOSTION Q 2 HR, SAFETY PRECAUTION MAINTAINED ALL THE TIME. ENDORSED ONCOMING NURSE FOLLOW PLAN OF CARE.
--- NOTE | 2019-10-20 19:05 | NUR ---
OPERATIONAL COMMUNICATION CHIEF OPENING NOTES: RECEIVED PT AWAKE BUT CONFUSED IN BED RESTING COMFORTABLY. PATIENT IN NO S/SX OF ACUTE DISTRESS AT THIS TIME. NO SOB NOTED. PATIENT'S BREATHING IS EVEN AND UNLABORED. PATIENT IS ON 2L OF OXYGEN VIA NC, TOLERATING WELL. PATIENT ON CARDIAC MONITORING READING SINUS RHYTHM HR IS @71. NOTED IV SITE ON BEV MIDLINE WITH IVF NS RUNNING @ 75ML/HR INFUSING WELLON DROPLET ISOLATION TO R/O COVID 19, WITH HAND MITTEN ORDER CURRENTLY OFF PT IS COOPERATIVE LARISA SAFETY MEASURES HAVE BEEN PROVIDED AND IMPLEMENTED. PATIENT BED ALARM IS ON. HEAD OF BED ELEVATED. BED IS LOCKED, IN LOWEST POSITION AND SIDE RAILS UP. CALL LIGHT WITHIN REACH OF THE PATIENT. WILL CONTINUE TO MONITOR AND REASSESS FOR ANY CHANGES.
[2019-10-20 20:00] VITALS: BP 137/69
[2019-10-20] MEDS: SENNOSIDES 8.6 MG TABLET PO SCH (21:23)
[2019-10-21] VITALS: BP 150/54
[2019-10-21 04:00] VITALS: BP 156/74
[2019-10-21 06:23] LABS: BASOPHILS % (AUTO) 0.6 % (0.0-2.0); EOSINOPHILS % (AUTO) 1.7 % (0.0-6.0); HEMATOCRIT 35 % (33-45); HEMOGLOBIN 11.7 g/dL (11.5-14.8); LYMPHOCYTES # (AUTO) 1.8 /CMM (0.8-4.8); LYMPHOCYTES % (AUTO) 23.1 % (20.0-44.0); MEAN CORPUSCULAR HGB CONC 34 g/dl (31.0-36.0); MEAN CORPUSCULAR VOLUME 93 fL (82-100); MONOCYTES # (AUTO) 0.8 /CMM (0.1-1.30); MONOCYTES % (AUTO) 10.3 % (2.0-12.0); NEUTROPHILS # (AUTO) 5.1 /CMM (1.8-8.9); NEUTROPHILS % (AUTO) 64.3 % (43.0-81.0); PLATELET COUNT (AUTO) 242 /CMM (150-450); RED BLOOD CELL COUNT(AUTO) 3.76 MIL/uL (4.0-5.2); WHITE BLOOD COUNT (AUTO) 7.9 K/uL (4.3-11.0)
[2019-10-21 06:35] LABS: CALCIUM, SERUM 8.6 mg/dL (8.5-10.1); CREATININE 0.6 mg/dL (0.6-1.3); MAGNESIUM 1.7 mg/dL (1.8-2.4); PHOSPHORUS 3.4 mg/dL (2.5-4.9); POTASSIUM 2.9 mmol/L (3.5-5.1)
[2019-10-21 06:46] LABS: C-REACTIVE PROTEIN 3.2 mg/dL (0.0-0.9)
--- NOTE | 2019-10-21 06:48 | NUR ---
RN CLOSING NOTES PT SLEEPING ON BED NO SIGN AND SYMPTOMS OF RESPIRATORY DISTRESS SPO2>95%, ON TELE MONITOR WITH READING SR 70'S NO PAIN COMPLAINT DROPLET ISOLATION MAINTAINED FOR COVID (+) NO SIGNIFICANT CHANGES ON CONDITION NOTED ALL NEEDS ATTENDED SAFETY MEASURE MAINTAINED CALL LIGHT WITHIN REACH WILL ENDORSED TO AM SHIFT NURSE
--- NOTE | 2019-10-21 07:45 | NUR ---
DISABILITIES CAREGIVER NOTES PATIENT IN BED ON ROOM AIR SATURATING 94%. NO COUGH OR SOB NOTED AT THIS TIME. IV SITE PATENT . PATIENT ON COVID 19 ISOLATION. WILL CONTINUE TO MONITOR THE PATIENT.
[2019-10-21 08:00] VITALS: BP 145/83
[2019-10-21] MEDS: LIDOCAINE 5% (PATCH) 1 EA PATCH TP SCH ×2 (08:17→09:00)
[2019-10-21] MEDS: SERTRALINE HCL 25 MG TABLET PO SCH (08:18)
[2019-10-21] MEDS: METHOCARBAMOL (500MG) 500 MG TABLET PO SCH ×2 (08:18→21:06)
[2019-10-21] MEDS: OXYBUTYNIN CHLORIDE 5 MG TABLET PO SCH (08:18)
[2019-10-21] MEDS: ENOXAPARIN SODIUM 40 MG/0.4 ML DISP.SYRIN SQ SCH ×2 (08:22→09:00)
--- NOTE | 2019-10-21 08:59 | NUR ---
HYDRO STATION SUPERVISOR NOTES PATIENT REFUSED LIDOCAINE PATCH AND LOVENOX. BOTH RETURNED TO [facility].
[2019-10-21] MEDS ORDERED: POTASSIUM CL. PREMIX PERIPHER. 50 ML IV SCH (10:30)
[2019-10-21] MEDS ORDERED: Magnesium 1GM/D5W 100ML PREMIX 100 ML IV SCH (10:30)
[2019-10-21 12:00] VITALS: BP 140/77
--- NOTE | 2019-10-21 12:45 | NUR ---
LACER AND TIER NOTES PATIENT REMOVED MIDLINE. CALLED DR STEVE CONWAY TO CHANGE THE IV POTASSIUM AND MAGNESIUM TO PO ROUTE. DR JULES.
[2019-10-21] MEDS ORDERED: POTASSIUM CHLORIDE 10 MEQ TABLET.SA PO ONE (13:30)
[2019-10-21] MEDS ORDERED: MAGNESIUM OXIDE 400 MG TABLET PO ONE (13:30)
[2019-10-21] MEDS ORDERED: POTASSIUM CHLORIDE 20 MEQ TAB.PRT.SR PO SCH (14:00)
--- NOTE | 2019-10-21 14:15 | NUR ---
FELT CARBONIZER NOTES PER MD ORDER ADMINISTER ADDITIONAL POTASSIUM TO TODAY`S DOSE.
[2019-10-21 16:00] VITALS: BP 141/85
--- NOTE | 2019-10-21 18:45 | NUR ---
TOLL BOOTH OPERATOR NOTES MIDLINE NURSE AT BED SIDE AND LEFT UPPER MIDLINE GAUGE 18 INSERTED.
[2019-10-21] MEDS: IV NS 0.9% 1,000 ML IV PRN (19:27)
--- NOTE | 2019-10-21 19:39 | NUR ---
SCHOOL GUARD NOTES PATIENT IN BED HAVING HER DINNER. NO SOB OR DISCOMFORT NOTED AT THIS TIME. MIDLINE IN PLACE COVERED WITH BURN NET. ALL NEEDS ATTENDED. BED AT THE LOWEST POSITION LOCKED. CALL LIGHT WITHIN REACH. REPORT GIVEN TO ROAD TEST EXAMINER NURSE.
[2019-10-21 20:00] VITALS: BP 144/69
[2019-10-21] MEDS: SENNOSIDES 8.6 MG TABLET PO SCH (21:06)
[2019-10-22] VITALS: BP 155/83
[2019-10-22 04:00] VITALS: BP 130/89
[2019-10-22] MEDS: ACETAMINOPHEN 325 MG TABLET PO PRN (04:41)
[2019-10-22 06:44] LABS: BASOPHILS % (AUTO) 0.3 % (0.0-2.0); EOSINOPHILS % (AUTO) 1.3 % (0.0-6.0); HEMATOCRIT 38 % (33-45); HEMOGLOBIN 12.8 g/dL (11.5-14.8); LYMPHOCYTES # (AUTO) 2.3 /CMM (0.8-4.8); LYMPHOCYTES % (AUTO) 25.6 % (20.0-44.0); MEAN CORPUSCULAR HGB CONC 34 g/dl (31.0-36.0); MEAN CORPUSCULAR VOLUME 93 fL (82-100); MONOCYTES # (AUTO) 0.9 /CMM (0.1-1.30); MONOCYTES % (AUTO) 10.2 % (2.0-12.0); NEUTROPHILS # (AUTO) 5.7 /CMM (1.8-8.9); NEUTROPHILS % (AUTO) 62.6 % (43.0-81.0); PLATELET COUNT (AUTO) 229 /CMM (150-450); RED BLOOD CELL COUNT(AUTO) 4.11 MIL/uL (4.0-5.2); WHITE BLOOD COUNT (AUTO) 9.1 K/uL (4.3-11.0)
[2019-10-22 07:19] LABS: CREATININE 0.6 mg/dL (0.6-1.3); MAGNESIUM 2.1 mg/dL (1.8-2.4); PHOSPHORUS 2.9 mg/dL (2.5-4.9); POTASSIUM 4.1 mmol/L (3.5-5.1)
[2019-10-22 08:00] VITALS: BP 140/66
--- NOTE | 2019-10-22 08:00 | NUR ---
RN OPENING NOTES PT RECEIVED LAYING DOWN IN THE BED COMFORTABLY. PT IS A/A/O X2.PT HAS NO S/S OF RESPIRATORY DISTRESS. PT HAS UNLABORED BREATHING. PT SATING 96% ON RA. PT ON TELE MONITORING HR IN 70s SR. PT HAS MIDLINE ON CARY, NS 75 ML/HR IS RUNNING, DRESSING IS DRY,CLEAN,INTACT. SAFETY MEASURES IMPLEMENTED BED AT LOWES POSITION, LOCKED, BED ALARM ON, CALL LIGHT WITHIN REACH. WILL CONTINUE TO MONITOR FOR ANY CHANGES.
[2019-10-22] MEDS: ENOXAPARIN SODIUM 40 MG/0.4 ML DISP.SYRIN SQ SCH (08:55)
[2019-10-22] MEDS: METHOCARBAMOL (500MG) 500 MG TABLET PO SCH ×2 (08:56→21:20)
[2019-10-22] MEDS: OXYBUTYNIN CHLORIDE 5 MG TABLET PO SCH (08:56)
[2019-10-22] MEDS: SERTRALINE HCL 25 MG TABLET PO SCH (08:56)
[2019-10-22] MEDS: LIDOCAINE 5% (PATCH) 1 EA PATCH TP SCH ×2 (08:57→09:00)
--- NOTE | 2019-10-22 10:53 | NUR ---
RN NOTE: PER DIETARY RECOMMENDATION, CHANGE DIET TO REGULAR. INFORMED DR. STEVE CONWAY AND ACKNOWLEDGED. ORDER NOTED AND CARRIED OUT.
[2019-10-22 12:00] VITALS: BP 162/78
[2019-10-22] MEDS: IV NS 0.9% 1,000 ML IV PRN (13:15)
--- NOTE | 2019-10-22 14:00 | NUR ---
RN NOTES PT REFUSED LIDOCAINE PATCH. RETURNED TO [facility].
--- NOTE | 2019-10-22 14:01 | NUR ---
RN NOTE: REPORTED TO DR. STEVE CONWAY ABOUT BP: 162/78. NO HX OF HYPERTENSTION NOTED ON CHART. HR: 78 WITH TEMP OF 98.5. MD ACKNOWLEDGED INFORMATION AND TOLD TO MONITOR PATIENT'S CONDITION. PATIENT NOT COMPLAINING OF CHEST PAIN/TIGHTNESS AND NOT NOTEDD. NO PAIN NOTED NOR REPORTED. WILL CONTINUE TO MONITOR.
[2019-10-22 16:00] VITALS: BP 138/67
--- NOTE | 2019-10-22 18:20 | NUR ---
RN CLOSING NOTES PT IS RESTING IN THE BED. NO ACUTE CHANGES DURING MY SHIFT.NO S/S OF DISTRESS, PT HS UNLABORED BREATHING. PT IS ON RA SATING 96. SAFETY MEASURES IMPLEMENTED BED AT LOWEST POSITION, CALL LIGHT WITHIN REACH, SIDE RAILS UPX3. WILL ENDORSE TO INCOMING SHIFT FOR CONTINUITY OF CARE.
--- NOTE | 2019-10-22 19:30 | NUR ---
JEWEL SAWYER NOTES PATIENT IN BED, RESTING. ALERT AND ORIENTED X2-3. BREATHING EVEN AND UNLABORED ON ROOM AIR. SHOWS NO SIGNS OF ACUTE RESPIRATORY DISTRESS, NO ACUTE PAIN. TELE MONITOR SR 70'S. IV CARY MIDLINE ITS CLEAN DRY AND INTACT. SHOWS NO SIGNS OF INFILTRATION, NO REDNESS. SAFETY PRECAUTIONS IN PLACE. BED IN LOWEST POSITION, LOCKED, AND CALL LIGHT KEPT WITHIN REACH. WILL CONTINUE TO MONITOR.
[2019-10-22 20:00] VITALS: BP 141/71
[2019-10-22] MEDS: SENNOSIDES 8.6 MG TABLET PO SCH (21:20)
[2019-10-23] VITALS (8 sets, daily range): BP systolic 134–161; BP diastolic 72–93
--- NOTE | 2019-10-23 06:25 | NUR ---
SUPERVISOR PHOTOENGRAVING NOTES PATIENT REFUSED LAB DRAW. COULD NOT DRAW BLOOD FROM MIDLINE.
--- NOTE | 2019-10-23 06:33 | NUR ---
LINE CONTROLLER NOTES PATIENT IN BED, ASLEEP. ALERT AND ORIENTED X2-3. BREATHING EVEN AND UNLABORED ON ROOM AIR. SHOWS NO SIGNS OF ACUTE RESPIRATORY DISTRESS, NO ACUTE PAIN. TELE MONITOR SR 70'S. IV CARY MIDLINE ITS CLEAN DRY AND INTACT. SHOWS NO SIGNS OF INFILTRATION, NO REDNESS. ALL DUE MEDICATIONS GIVEN. SAFETY PRECAUTIONS IN PLACE. BED IN LOWEST POSITION, LOCKED, AND CALL LIGHT KEPT WITHIN REACH. WILL ENDORSE TO ONCOMING NURSE.
--- NOTE | 2019-10-23 07:14 | NUR ---
RN OPENING NOTES Patient received on room air, no sob noted, a/o x2 confused. regular diet with CARY midline. bed at the lowest setting, call light within reach, side rails up x2.
[2019-10-23] MEDS: OXYBUTYNIN CHLORIDE 5 MG TABLET PO SCH (08:57)
[2019-10-23] MEDS: ENOXAPARIN SODIUM 40 MG/0.4 ML DISP.SYRIN SQ SCH (08:57)
[2019-10-23] MEDS: METHOCARBAMOL (500MG) 500 MG TABLET PO SCH ×2 (08:58→20:34)
[2019-10-23] MEDS: SERTRALINE HCL 25 MG TABLET PO SCH (08:58)
[2019-10-23 15:13] LABS: BASOPHILS % (AUTO) 0.4 % (0.0-2.0); EOSINOPHILS % (AUTO) 1.2 % (0.0-6.0); HEMATOCRIT 41 % (33-45); HEMOGLOBIN 13.4 g/dL (11.5-14.8); LYMPHOCYTES # (AUTO) 2.6 /CMM (0.8-4.8); LYMPHOCYTES % (AUTO) 24.4 % (20.0-44.0); MEAN CORPUSCULAR HGB CONC 33 g/dl (31.0-36.0); MEAN CORPUSCULAR VOLUME 94 fL (82-100); MONOCYTES # (AUTO) 0.9 /CMM (0.1-1.30); MONOCYTES % (AUTO) 8.5 % (2.0-12.0); NEUTROPHILS % (AUTO) 65.5 % (43.0-81.0); PLATELET COUNT (AUTO) 214 /CMM (150-450); RED BLOOD CELL COUNT(AUTO) 4.31 MIL/uL (4.0-5.2); WHITE BLOOD COUNT (AUTO) 10.6 K/uL (4.3-11.0)
[2019-10-23 15:50] LABS: CALCIUM, SERUM 9.4 mg/dL (8.5-10.1); CREATININE 0.6 mg/dL (0.6-1.3); MAGNESIUM 2.2 mg/dL (1.8-2.4); PHOSPHORUS 3.7 mg/dL (2.5-4.9); POTASSIUM 3.9 mmol/L (3.5-5.1)
--- NOTE | 2019-10-23 17:57 | NUR ---
rn closing notes patient remains on room air, no sob noted, patient shows no s/s of pain at this time. Bed bound with skin intact at this time. Able to swallow medications. CARY midline. bed at the lowest setting, call light within reach, side rails up x2.
--- NOTE | 2019-10-23 19:40 | NUR ---
RN PM OPENING NOTE WRITTEN REPORT RECIEVED FROM CHARGE NURSE. PATIENT ON RA NO APPARENT SOB RESP EVEN AND UNLABORED. PATIENT IS BED BOUND. CARY MIDLINE INTACT AND PATENT. BED LOW LOCKED CALL LIGHT WITHIN REACH PATIENT ON TELE MONITOR KUMAR GUTHRIE AT 79
[2019-10-23] MEDS: SENNOSIDES 8.6 MG TABLET PO SCH (20:35)
[2019-10-23] MEDS: ACETAMINOPHEN 325 MG TABLET PO PRN (20:46)
--- NOTE | 2019-10-23 20:46 | NUR ---
ACETAMINOPHEN ADMINISTERED ORDERED FOR PAIN 3/10 TO LOWER BACK PER PATIENT REQUEST.
--- NOTE | 2019-10-23 22:50 | NUR ---
TRANSFER NOTE PATIENT TO BE TRANSFERRED TO [facility] SURGE OVERFLOW TO BED 204. REPORT CALLED TO NAVEEN. QUESTIONS CONCERNS ADDRESSED. PATIENT IN NO APPARENT DISTRESS. TO BE TRANSFERRED WITH EDUARDO HAMILTON AND TWO AIDES KIMI.
--- NOTE | 2019-10-23 23:05 | NUR ---
gizzard peeler opening notes Received Pt from JARETT. Pt is resting in bed comfortably. Pt is alert and orientedX2. Respiration is normal in room air. No SOB. No S/S of distress noted. CARY midline is clean, intact, and flush without resistance. VS is stable. Afebrile. Tele monitor showed SR HR at 64 bpm. Isolation precautions is maintained. Bed at low position, brakes locked, side rails upx2, bed alarm is on and call light is within reach. Will continue to monitor.
[2019-10-24] VITALS (8 sets, daily range): BP systolic 112–138; BP diastolic 53–79
--- NOTE | 2019-10-24 06:50 | NUR ---
director of marketing closing notes Pt is resting in bed comfortably. Pt is alert and orientedX2. Respiration is normal in room air. No SOB. No S/S of distress noted. VS is stable. Afebrile. Tele monitor showed SR HR at 69 bpm. CARY midline is clean, intact, patent and SL. Skin care provided. Kept Pt clean, dry and comfortable. All needs met and attended. Isolation precautions is maintained. Safety precautions is maintained. Bed at low position, brakes locked, HOB elevated, side rails upX3 and call light is within reach. Will endorse to morning nurse for JIMBO..
--- NOTE | 2019-10-24 08:00 | NUR ---
CONTRACTING ANALYST OPENING NOTE RECEIVED PATIENT IN BED, ASLEEP. ALERT AND ORIENTED X2-3. BREATHING EVEN AND UNLABORED ON ROOM AIR. NO CARDIAC OR RESPIRATORY DISTRESS NOTED. PT HAS BEHAVIORS OF TRYING TO TAKE OFF O2. HOWEVER, WHEN I TALKED TO HER TO KEEP HER O2 ON, SHE AGREED. O2 SAT NOTED AT 97% ON 2L. , NO S/S OF ACUTE PAIN. TELE MONITOR SR 70'S. IV ACCESS NOTED ON CARY MIDLINE INTACT AND PATENT. NO SIGNS OF INFILTRATION, NO REDNESS. SAFETY PRECAUTIONS IN PLACE. BED IN LOWEST POSITION, LOCKED, AND CALL LIGHT KEPT WITHIN REACH. BED ALARM ON. WILL CONT TO MONITOR
[2019-10-24] MEDS: ENOXAPARIN SODIUM 40 MG/0.4 ML DISP.SYRIN SQ SCH (08:22)
[2019-10-24] MEDS: METHOCARBAMOL (500MG) 500 MG TABLET PO SCH ×2 (08:32→20:49)
[2019-10-24] MEDS: OXYBUTYNIN CHLORIDE 5 MG TABLET PO SCH (08:32)
[2019-10-24] MEDS: LIDOCAINE 5% (PATCH) 1 EA PATCH TP SCH (08:32)
[2019-10-24] MEDS: SERTRALINE HCL 25 MG TABLET PO SCH (08:32)
--- NOTE | 2019-10-24 12:00 | NUR ---
CXRAY RESULT DR. STEVE CONWAY NOTIFIED REGARDING CXRAY RESULT. PER MD, NO NEW ORDERS FOR NOW. .
--- NOTE | 2019-10-24 18:41 | NUR ---
OVEN BUILDER CLOSING NOTE PATIENT IN BED, ASLEEP. ALERT AND ORIENTED X2-3. BREATHING EVEN AND UNLABORED ON ROOM AIR. NO CARDIAC OR RESPIRATORY DISTRESS NOTED. PT HAS BEHAVIORS OF TRYING TO TAKE OFF O2. HOWEVER, WHEN PT IS ENCOURAGED AND TALKED TO, SHE DOES COMPLY, PT IS REDIRECTABLE. O2 SAT NOTED AT 97% ON 2L. , NO S/S OF ACUTE PAIN. TELE MONITOR SR 70'S. IV ACCESS NOTED ON CARY MIDLINE INTACT AND PATENT. NO SIGNS OF INFILTRATION, NO REDNESS. KEPT PT CLEAN AND DRY. ALL NEEDS MET AND ATTENDED. BED IN LOWEST POSITION, LOCKED, AND CALL LIGHT KEPT WITHIN REACH. BED ALARM ON. WILL ENDORSE TO NEXT SHIFT.
--- NOTE | 2019-10-24 19:45 | NUR ---
FOOT PRESS OPERATOR NOTES RECEIVED ON BED A/O X2,BREATHING EASY,NO SOB,SALINE LOCK MIDLINE LEFT UPPER ARM INTACT AND PATENT.ISOLATION PRECAUTION FOR COVID 19 POSITIVE ON 10/16 BUT NEGATIVE ON 10/22.FALL PRECAUTION OBSERVED,BED ON LOWEST POSITION AND LOCKED,CALL LIGHT IN REACH,NEEDS ANTICIPATED.
[2019-10-24] MEDS: SENNOSIDES 8.6 MG TABLET PO SCH (21:53)
[2019-10-25 00:13] VITALS: BP 128/63
[2019-10-25 04:00] VITALS: BP 120/68
--- NOTE | 2019-10-25 04:25 | NUR ---
AMBULANCE DRIVER PARAMEDIC NOTES INFORMED HOSPITALIST GINA ABOUT SECOND TEST FOR COVID,SAYS TO WAIT FOR DAY PROVIDER TO SEE PATIENT FIRST,NOTED.
--- NOTE | 2019-10-25 06:31 | NUR ---
MARKETING SYSTEMS ANALYST NOTES ON BED A/O X2.NO EPISODE OF SOB NOTED,SLEPT WITH INTERVALS,SR-SB ON TELE MONITOR.DENIES CHEST PAIN,SECOND TEST FOR COVID NEGATIVE.HOSPITALIST GINA AWARE.IN NO ACUTE DISTRESS.
--- NOTE | 2019-10-25 07:10 | NUR ---
COPPER PLATE PRINTER NOTES PATIENT IN BED ALERT ORIENTED X 2 . NO ACUTE DISTRESS NOTED. BREATHING UNLABORED. NO SOB NOTED. IV ACCESS PATENT AND INTACT, NO REDNESS, NO SWELLING NOTED. SAFETY MEASURES IN PLACE. CALL LIGHT WITHIN REACH. WILL CONTINUE TO MONITOR ACCORDINGLY.
[2019-10-25 08:00] VITALS: BP 126/62
[2019-10-25] MEDS: METHOCARBAMOL (500MG) 500 MG TABLET PO SCH ×2 (09:02→21:02)
[2019-10-25] MEDS: SERTRALINE HCL 25 MG TABLET PO SCH (09:02)
[2019-10-25] MEDS: OXYBUTYNIN CHLORIDE 5 MG TABLET PO SCH (09:02)
[2019-10-25] MEDS: ENOXAPARIN SODIUM 40 MG/0.4 ML DISP.SYRIN SQ SCH (09:02)
[2019-10-25] MEDS: LIDOCAINE 5% (PATCH) 1 EA PATCH TP SCH (10:03)
[2019-10-25 12:00] VITALS: BP 129/65
[2019-10-25 16:00] VITALS: BP 128/73
--- NOTE | 2019-10-25 19:00 | NUR ---
PNEUMATIC SYSTEM CONVEYOR OPERATOR NOTES PATIENT IN BED ALERT ORIENTED X 2 . NO ACUTE DISTRESS NOTED. BREATHING UNLABORED. NO SOB NOTED. IV ACCESS PATENT AND INTACT, NO REDNESS, NO SWELLING NOTED. KEPT CLEAN DRY AND COMFORTABLE. REPOSITION EVERY 2 HOURS AND NEEDED. SAFETY MEASURES IN PLACE. CALL LIGHT WITHIN REACH. WILL ENDORSE TO NIGHT NURSE FOR CONTINUITY OF CARE.
[2019-10-25 20:00] VITALS: BP_SYST 120; BP_SYST 127; BP_DIAS 64; BP_DIAS 65
--- NOTE | 2019-10-25 20:15 | NUR ---
CREAMERY WORKER: RECEIVED REPORT FROM JONATHAN KUMAR. PT CURRENTLY COVID NEGATIVE, AWAITING RESULT OF ANOTHER COVID TEST, SWAB DONE TODAY AT 1500. PT A/O X1-2. COOPERATIVE, PLEASANT, ON 2L OXYGEN VIA NC, RESPIRATIONS EVEN AND UNLABORED. IV ACCESS PATENT AND FLUSHING WELL, ON HL. ASSISTED FEEDING PT, ABLE TO CONSUMED SNACK 100%. ON TELE SINUS RHYTHM HR 76. ON ISOLATION COVID19 PRECAUTION, PPE UTILIZED. SAFETY PRECAUTIONS FOR FALL INITIATED, CALL LIGHT IN REACH, WILL CONTINUE MONITORING PT.
[2019-10-25] MEDS: SENNOSIDES 8.6 MG TABLET PO SCH (21:02)
[2019-10-26] VITALS: BP 130/68
[2019-10-26 04:00] VITALS: BP 127/65
--- NOTE | 2019-10-26 06:22 | NUR ---
RN NOTES: PT REFUSED BLOOD DRAW, INFORMED GEAR CHANGER TO PLEASE COMER BACK AFTER BREAKFAST, MAYBE PT WILL AGREE AFTER EATING.
--- NOTE | 2019-10-26 07:04 | NUR ---
END OF SHIFT REPORT: PT REMAINS ON 2L OXYGEN, AFEBRILE THROUGHOUT THE SHIFT, COOPERATIVE, SINUS CYRUS HR 56 , IV ACCESS REMAINS PATENT AND FLUSHING WELL, ON HL, NO S/S OF IV INFILTRATION NOTED. AWAITING RESULT OF COVID SWAB#3. ALL DUE MEDS ADMINISTERED. FAMILY REFUSING PT TO BE DC BACK TO [facility], WILL INFORM CLAY MAKER. VS REMAINS STABLE, NEEDS ATTENDED. SAFETY PRECAUTIONS FOR FALL REMAINS ENGAGED, CALL LIGHT IN REACH, ROUNDING PERFORMED, PPE UTILIZED, ENDORSED TO DAY STACY CASTILLO FOR JIMBO.
--- NOTE | 2019-10-26 07:05 | NUR ---
SPICE MILLER HAMMER MILL NOTES PATIENT IN BED ALERT ORIENTED X 2 . NO ACUTE DISTRESS NOTED. BREATHING UNLABORED. NO SOB NOTED. IV ACCESS PATENT AND INTACT, NO REDNESS, NO SWELLING NOTED. SAFETY MEASURES IN PLACE. CALL LIGHT WITHIN REACH. WILL CONTINUE TO MONITOR ACCORDINGLY.
[2019-10-26 08:00] VITALS: BP 115/68
[2019-10-26] MEDS: SERTRALINE HCL 25 MG TABLET PO SCH (09:17)
[2019-10-26] MEDS: METHOCARBAMOL (500MG) 500 MG TABLET PO SCH ×2 (09:17→21:22)
[2019-10-26] MEDS: OXYBUTYNIN CHLORIDE 5 MG TABLET PO SCH (09:18)
[2019-10-26] MEDS: ENOXAPARIN SODIUM 40 MG/0.4 ML DISP.SYRIN SQ SCH (09:19)
[2019-10-26] MEDS: LIDOCAINE 5% (PATCH) 1 EA PATCH TP SCH (09:20)
--- NOTE | 2019-10-26 16:16 | NUR ---
INSPECTOR ASSEMBLIES AND INSTALLATIONS NOTES NOTIFIED CASE MANAGEMENT SPOKE WITH IRAIS THAT FAMILY REQUESTING NOT TO GO BACK [facility], CASE MANAGEMENT TO SPEAK WITH FAMILY REGARDING REQUEST.
--- NOTE | 2019-10-26 18:59 | NUR ---
PLANTING SUPERVISOR NOTES PATIENT IN BED ALERT ORIENTED X 2 . NO ACUTE DISTRESS NOTED. BREATHING UNLABORED. NO SOB NOTED. IV ACCESS PATENT AND INTACT, NO REDNESS, NO SWELLING NOTED. KEPT CLEAN DRY AND COMFORTABLE. REPOSITION EVERY 2 HOURS AND NEEDED. SAFETY MEASURES IN PLACE. CALL LIGHT WITHIN REACH. WILL ENDORSE TO NIGHT NURSE FOR CONTINUITY OF CARE.
[2019-10-26 19:30] VITALS: BP 116/64
--- NOTE | 2019-10-26 19:55 | NUR ---
PENSION ADMINISTRATOR NOTES PATIENT IN BED, ALERT AND ORIENTED X 2. BREATHING EVEN AND UNLABORED ON ROOM AIR. SHOWS NO SIGNS OF ACUTE RESPIRATORY DISTRESS, NO ACUTE PAIN. TELE MONITOR SR. IV ON CARY MIDLINE SL. SHOWS NO SIGNS OF INFILTRATION, NO REDNESS. SAFETY PRECAUTIONS IN PLACE. BED IN LOWEST POSITION, LOCKED, AND CALL LIGHT KEPT WITHIN REACH. WILL CONTINUE TO MONITOR.
[2019-10-26 20:00] VITALS: BP 116/66
[2019-10-26] MEDS: SENNOSIDES 8.6 MG TABLET PO SCH (21:22)
--- NOTE | 2019-10-26 23:30 | NUR ---
RESEARCH AND DEVELOPMENT RESEARCHER NOTES CALL FROM LAB, 3RD COVID-19 RESULT NEGATIVE X 2 . WILL CONTINUE TO MONITOR.
[2019-10-27] VITALS: BP 115/85
[2019-10-27 00:11] LABS: BASOPHILS # (AUTO) 0.1 /CMM (0.0-0.2); BASOPHILS % (AUTO) 0.9 % (0.0-2.0); HEMATOCRIT 39 % (33-45); HEMOGLOBIN 12.6 g/dL (11.5-14.8); LYMPHOCYTES # (AUTO) 2.5 /CMM (0.8-4.8); LYMPHOCYTES % (AUTO) 25.8 % (20.0-44.0); MEAN CORPUSCULAR HGB CONC 33 g/dl (31.0-36.0); MEAN CORPUSCULAR VOLUME 93 fL (82-100); MONOCYTES # (AUTO) 0.9 /CMM (0.1-1.30); MONOCYTES % (AUTO) 8.8 % (2.0-12.0); NEUTROPHILS # (AUTO) 6.1 /CMM (1.8-8.9); NEUTROPHILS % (AUTO) 62.5 % (43.0-81.0); PLATELET COUNT (AUTO) 213 /CMM (150-450); RED BLOOD CELL COUNT(AUTO) 4.17 MIL/uL (4.0-5.2); WHITE BLOOD COUNT (AUTO) 9.8 K/uL (4.3-11.0)
[2019-10-27 00:29] LABS: CALCIUM, SERUM 8.8 mg/dL (8.5-10.1); CARBON DIOXIDE 26 mmol/L (21-32); CHLORIDE 109 mmol/L (98-107); CREATININE 0.9 mg/dL (0.6-1.3); GLUCOSE 113 mg/dL (74-106); POTASSIUM 3.1 mmol/L (3.5-5.1); SODIUM SERUM 145 mmol/L (136-145); UREA NITROGEN, BLOOD 23 mg/dL (7-18)
[2019-10-27 04:00] VITALS: BP 112/57
--- NOTE | 2019-10-27 06:32 | NUR ---
CHILD WELFARE DIRECTOR NOTES PATIENT IN BED, ALERT AND ORIENTED X 2. BREATHING EVEN AND UNLABORED ON ROOM AIR. SHOWS NO SIGNS OF ACUTE RESPIRATORY DISTRESS, NO ACUTE PAIN. TELE MONITOR SR. IV ON CARY MIDLINE SL. SHOWS NO SIGNS OF INFILTRATION, NO REDNESS. ALL DUE MEDICATIONS GIVEN. SAFETY PRECAUTIONS IN PLACE. BED IN LOWEST POSITION, LOCKED, AND CALL LIGHT KEPT WITHIN REACH. WILL ENDORSE TO ONCOMING NURSE.
--- NOTE | 2019-10-27 07:00 | NUR ---
PRODUCTION DIRECTOR OPENING NOTES PATIENT IN BED ALERT ORIENTED X 2 . NO ACUTE DISTRESS NOTED. BREATHING UNLABORED. NO SOB NOTED. IV ACCESS PATENT AND INTACT, NO REDNESS, NO SWELLING NOTED. SAFETY MEASURES IN PLACE. CALL LIGHT WITHIN REACH. WILL CONTINUE TO MONITOR ACCORDINGLY.
[2019-10-27 08:00] VITALS: BP 124/64
[2019-10-27] MEDS: OXYBUTYNIN CHLORIDE 5 MG TABLET PO SCH (09:16)
[2019-10-27] MEDS: SERTRALINE HCL 25 MG TABLET PO SCH (09:16)
[2019-10-27] MEDS: METHOCARBAMOL (500MG) 500 MG TABLET PO SCH ×2 (09:16→21:37)
[2019-10-27] MEDS: LIDOCAINE 5% (PATCH) 1 EA PATCH TP SCH (09:16)
[2019-10-27] MEDS: ENOXAPARIN SODIUM 40 MG/0.4 ML DISP.SYRIN SQ SCH (09:54)
[2019-10-27 12:00] VITALS: BP 113/65
[2019-10-27 16:00] VITALS: BP 129/66
--- NOTE | 2019-10-27 19:00 | NUR ---
TRAVEL RN OR NOTES PATIENT IN BED ALERT ORIENTED X 2 . NO ACUTE DISTRESS NOTED. BREATHING UNLABORED. NO SOB NOTED. IV ACCESS PATENT AND INTACT, NO REDNESS, NO SWELLING NOTED. KEPT CLEAN DRY AND COMFORTABLE. REPOSITION EVERY 2 HOURS AND NEEDED. SAFETY MEASURES IN PLACE. CALL LIGHT WITHIN REACH. WILL ENDORSE TO NIGHT NURSE FOR CONTINUITY OF CARE.
--- NOTE | 2019-10-27 19:06 | NUR ---
NATUROPATHIC PHYSICIAN NOTES: PT ON TELE MONITOR AND READING SHOWS SR 69.
--- NOTE | 2019-10-27 19:15 | NUR ---
LEGAL SECRETARY RECEPTIONIST OPENING NOTES: RECEIVED PT ON ROOM AIR AND IS TOLERATING WELL. PT IS A/OX2 AND STATES THAT SHE IS READY TO GO TO BED. PT HAS CARY MIDLINE #18G AND IS PATENT AND INTACT. CURRENTLY H/L. BED KEPT IN LOW, LOCKED POSITION, AND SIDE RAILS X 3 UP. BED ALARM ACTIVATED. WILL CONTINUE TO MONITOR PT.
[2019-10-27 20:00] VITALS: BP 113/58
[2019-10-27] MEDS: SENNOSIDES 8.6 MG TABLET PO SCH (21:37)
[2019-10-28] VITALS: BP 130/63
[2019-10-28 04:00] VITALS: BP 124/62
--- NOTE | 2019-10-28 06:38 | NUR ---
PEARL PELLER CLOSING NOTES: ALL NEEDS WERE ATTENDED AND ANTICIPATED FOR. PT REMAINS ON ROOM AIR AND TOLERATED IT. PT HAS IV ON CARY MIDLINE #18G AND IS PATENT AND INTACT. CURRENTLY H/L. PT ASLEEP AT THIS TIME. PT IS A/OX1-2. PT REORIENTED PRN. PT KEPT CLEAN, DRY, AND COMFORTABLE. PT TURNED AND REPOSITIONED Q 2HRS. BED KEPT IN LOW, LOCKED POSITION, AND SIDE RAILS X 3 UP. BED ALARM ACTIVATED WELL. CALL LIGHT WITHIN REACH. WILL ENDORSE TO AM NURSE FOR JIMBO.
--- NOTE | 2019-10-28 06:41 | NUR ---
CONFECTIONERY MAKER NOTES: PT ON TELE MONITOR AND READING SHOWS SR 61.
--- NOTE | 2019-10-28 07:18 | NUR ---
INSPECTOR RUBBER STAMP DIE NOTES: ENDORSED TO AM NURSEBG, FOR JIMBO.
[2019-10-28 08:00] VITALS: BP 116/67
--- NOTE | 2019-10-28 08:00 | NUR ---
SALES AGENT FINANCIAL REPORT SERVICE OPENING NOTES: RECEIVED PT ON ROOM AIR AND IS TOLERATING WELL. PT IS A/OX2. PT HAS CARY MIDLINE #18G AND IS PATENT AND INTACT. CURRENTLY H/L. BED KEPT IN LOW, LOCKED POSITION, AND SIDE RAILS X 3 UP. BED ALARM ACTIVATED. WILL CONTINUE TO MONITOR PT.
[2019-10-28] MEDS: OXYBUTYNIN CHLORIDE 5 MG TABLET PO SCH (09:36)
[2019-10-28] MEDS: LIDOCAINE 5% (PATCH) 1 EA PATCH TP SCH (09:36)
[2019-10-28] MEDS: METHOCARBAMOL (500MG) 500 MG TABLET PO SCH (09:36)
[2019-10-28] MEDS: ENOXAPARIN SODIUM 40 MG/0.4 ML DISP.SYRIN SQ SCH (09:36)
[2019-10-28] MEDS: SERTRALINE HCL 25 MG TABLET PO SCH (09:36)
--- NOTE | 2019-10-28 11:00 | NUR ---
ENDORSED PT AND GAVE REPORT TO STACY MOSES.
--- NOTE | 2019-10-28 18:03 | NUR ---
rn notes patient discharged at this time. No sob noted, vital signs stable, patient has no IV lines of any kind and is removed. Paper works with EMT and patient. Nothing is missing at this time. Discharge paperwork signed by patient. Patient refused any photos.
== END 2019-10-28 18:16 | DRG 177 ==
LOC: ER 02:52 → TELE-TD 04:46 → TELE1 04:53 → TELE2 10-23 22:48 → MED 10-28 11:18
PROVIDERS: ADMIT Nurse Practitioner Acute Care; ATTEND Nurse Practitioner Acute Care
PROC: 05H933Z Insertion of Infusion Device into Right Brachial Vein, Percutaneous Approach (ICD-10-PCS; principal; 2019-10-20)
PROC: 05HA33Z Insertion of Infusion Device into Left Brachial Vein, Percutaneous Approach (ICD-10-PCS; 2019-10-21)
DX: U07.1 COVID-19 (principal); J12.89 Other viral pneumonia; J96.01 Acute respiratory failure with hypoxia; N39.0 Urinary tract infection, site not specified; F41.9 Anxiety disorder, unspecified; F32.9 Major depressive disorder, single episode, unspecified; E03.9 Hypothyroidism, unspecified; Z88.0 Allergy status to penicillin; Z86.718 Personal history of other venous thrombosis and embolism; R94.31 Abnormal electrocardiogram [ECG] [EKG]; R07.9 Chest pain, unspecified; M19.90 Unspecified osteoarthritis, unspecified site; Z87.891 Personal history of nicotine dependence; M43.06 Spondylolysis, lumbar region; Z91.81 History of falling; F03.90 Unspecified dementia, unspecified severity, without behavioral disturbance, psychotic disturbance, mood disturbance, and anxiety; E87.6 Hypokalemia; R27.0 Ataxia, unspecified; D72.829 Elevated white blood cell count, unspecified
CPT/HCPCS: 36410; 36415; 36600; 71045-TC; 80048-TC; 80053-TC; 81000-TC; 82550-TC; 82728-TC; 83605-TC; 83615-TC; 83735-TC; 83880; 84100-TC; 84484-TC; 85025-TC; 85378-TC; 86140-TC; 87040-TC; 87081-TC; 87086-TC; A4216; G0378; J1650; J1956; J2405; J3475; J3480; J3490; J7030; J7050; U0003; U0003-CS